=== PATIENT | female | born 1955 | race African-American/Black ===

== ENCOUNTER 2017-08-24 12:30 | Emergency (ER) | payer BC, OTHER ==
[2017-08-24 12:41] VITALS: BMI 22.3
[2017-08-24] MEDS ORDERED: KETOROLAC TROMETHAMINE 15 MG/ML VIAL IVPUSH ONE (14:09)
[2017-08-24] MEDS ORDERED: KETOROLAC TROMETHAMINE 60 MG/2 ML VIAL ONE (14:38)
[2017-08-24 15:32] LABS: ALBUMIN 3.9 g/dl (3.4-5.0); ANION GAP 8 (8-16); BILIRUBIN,TOTAL 0.3 mg/dL (0.2-1.0); CALCIUM 8.9 mg/dL (8.5-10.1); CO2 28 mmol/L (21-32); CREATININE 0.7 mg/dL (0.55-1.02); GLUCOSE,RANDOM 82 mg/dL (74-106); SGOT/AST 17 U/L (15-37); SGPT/ALT 26 U/L (12-78); TOT PROT 7.8 g/dl (6.4-8.2)
[2017-08-24 15:35] LABS: ALK PHOS 78 U/L (45-117); CPK 113 IU/L (26-192); TROPONIN I < 0.02 ng/ml (0.00-0.05)
[2017-08-24 15:37] LABS: BASOPHIL 0.6 % (0-2.0); EOSINOPHIL 3.7 % (0-4.5); MCH 27.8 pg (25.7-33.7); MCHC 32.5 g/dl (32.0-36.0); MEAN CELL VOLUME 85.6 fl (80-96); MEAN PLT VOLUME 9.2 fl (7.5-11.1); NEUTROPHILS 51.6 % (42.8-82.8); PLATELET COUNT 243 K/MM3 (134-434); RDW 13.9 % (11.6-15.6); WHITE BLOOD COUNT 5.6 K/mm3 (4.0-10.0)
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
[2017-08-24 15:55] LABS: PROTHROMBIN TIME (PATIENT) 11.3 SEC (9.98-11.88)
[2017-08-24 15:58] LABS: ACTIVATED PTT 28.6 SECONDS (26.9-34.4)
[2017-08-24 18:28] VITALS: BP 147/83; PULSE 68; TEMP 97.6
[2017-08-24 18:54] LABS: CPK 107 IU/L (26-192); TROPONIN I < 0.02 ng/ml (0.00-0.05)
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
--- NOTE | 2017-08-25 10:06 | EKG ---
Test Reason : Blood Pressure : / mmHG Vent. Rate : 067 BPM Atrial Rate : 067 BPM P-R Int : 158 ms QRS Dur : 090 ms QT Int : 448 ms P-R-T Axes : 093 003 011 degrees QTc Int : 473 ms POOR DATA QUALITY, INTERPRETATION MAY BE ADVERSELY AFFECTED NORMAL SINUS RHYTHM RSR' OR QR PATTERN IN V1 SUGGESTS RIGHT VENTRICULAR CONDUCTION DELAY Confirmed by JASBIR LAZAR MD ([id number]) on 08/25/2017 10:05:50 AM Referred By: Confirmed By:JASBIR LAZAR MD
== END 2017-08-24 20:08 | disposition home or self-care (01) ==
LOC: JER 12:30
PROC: 3E0333Z Introduction of Anti-inflammatory into Peripheral Vein, Percutaneous Approach (ICD-10-PCS; principal; 2017-08-24)
DX: R07.9 Chest pain, unspecified (principal); V49.69XA Unspecified car occupant injured in collision with other motor vehicles in traffic accident, initial encounter; Y92.488 Other paved roadways as the place of occurrence of the external cause; Y93.89 Activity, other specified; Y99.8 Other external cause status
CPT/HCPCS: 36415; 71020-TC; 80053; 82550; 84484; 85025; 85610; 85730; 93005; 93010; 99284-25

== ENCOUNTER → 2020-04-30 | Day surgery (SDC) | payer OTHER ==
--- NOTE | 2020-05-04 12:12 | PATH ---
Surgical Pathology Report Patient Name: MAGNOLIA MARTÍNEZ [facility]. Rec. #: [id number] /Age/Gender: 1955 (Age: 64) / F Account: [id number] Location: [facility] Taken: 04/30/2020 Received: 04/30/2020 Reported: 05/04/2020 Physicians: Candie Estevez M.D. Specimen(s) Received A: RIGHT BREAST SPECIMEN WITH CALCIFICATIONS SITE #1 B: RIGHT BREAST SPECIMEN WITHOUT CALCIFICATIONS SITE #1 C: RIGHT BREAST SPECIMEN WITH CALCIFICATIONS SITE #2 D: RIGHT BREAST SPECIMEN WITH CALCIFICATIONS SITE #2 Clinical History Nonpalpable lesion Mammographic findings: Microcalcification, suspicious Final Diagnosis A. BREAST, RIGHT, WITH CALCIFICATIONS, SITE #1, STEREOTACTIC BIOPSY: DUCTAL CARCINOMA IN SITU (DCIS), SOLID TYPE, HIGH NUCLEAR GRADE WITH EXTENSIVE NECROSIS AND ASSOCIATED CALCIFICATIONS. MICROINVASION CANNOT BE EXCLUDED IN THIS MATERIAL. (SEE NOTE) Note: A focus suspicious for microinvasion is noted on H&E slides. Immunohistochemical slides for myoepithelial markers (SMM-HC & p63, performed at [facility]) demonstrate the presence of myoepithelial cells in the foci of DCIS, however the focus suspicious for microinvasion cannot be further evaluated as it is no longer present in the sections for immunohistochemical stains. B. BREAST, RIGHT, WITHOUT CALCIFICATIONS SITE #1, STEREOTACTIC BIOPSY: BENIGN BREAST TISSUE. C. BREAST, RIGHT, WITH CALCIFICATIONS SITE #2, STEREOTACTIC BIOPSY: DUCTAL CARCINOMA IN SITU (DCIS), SOLID AND MICROPAPILLARY TYPE, HIGH NUCLEAR GRADE WITH EXTENSIVE NECROSIS AND ASSOCIATED CALCIFICATIONS. D. BREAST, RIGHT, WITHOUT CALCIFICATIONS SITE #2, STEREOTACTIC BIOPSY: DUCTAL CARCINOMA IN SITU (DCIS), SOLID AND MICROPAPILLARY TYPE, HIGH NUCLEAR GRADE. Results of ER and OH studies performed on this specimen (block A2) at [facility] are as follows: ER (clone [id number] mouse monoclonal antibody by [employer]): _X_ Positive: ~80 % nuclear staining with moderate to strong intensity. PgR (clone16 mouse monoclonal antibody by [employer]): _X_ Positive: ~40 % nuclear staining with moderate to strong intensity. Positive and negative controls (internal if applicable) show appropriate results. Formalin fixation and cold ischemic times are within current ASCO/CAP recommendations for ER, OH and Her2 testing. Electronically Signed Marika Villanueva M.D. Gross Description A. Received in formalin labeled "site 1 right breast with calcifications," are 9 doll-yellow, cylindrical portions of fibroadipose tissue ranging from 0.8-3.0 cm in length and averaging 0.2 cm in diameter. The specimens are submitted in 2 cassettes. B. Received in formalin labeled "site 1 right breast without calcifications," is a 0.8 cm in length x 0.2 cm diameter doll-yellow, cylindrical portion of fibroadipose tissue. The specimen is submitted in toto in one cassette. C. Received in formalin labeled "site 2 right breast with calcifications," is a 1.6 x 1.1 x 0.3 cm aggregate of doll-yellow, irregular to cylindrical portions of fibroadipose tissue. The specimen is submitted in toto in one cassette. D. Received in formalin labeled "site 2 right breast without calcifications," are 5 doll-yellow, cylindrical portions of fibroadipose tissue ranging from 0.6-2.5 cm in length and averaging 0.3 cm in diameter. The specimens are submitted in toto in one cassette. Time to formalin fixation: 5 minutes Total formalin fixation time: Approximately 7 hours. 04/30/2020 [facility]04/30/2020
== END | disposition home or self-care (01) ==
LOC: FMAMMOTONE 08:23
PROVIDERS: ATTEND Obstetrics & Gynecology
PROC: 0HBT3ZX Excision of Right Breast, Percutaneous Approach, Diagnostic (ICD-10-PCS; principal; 2020-04-30)
DX: D05.11 Intraductal carcinoma in situ of right breast (principal); N64.89 Other specified disorders of breast; R92.1 Mammographic calcification found on diagnostic imaging of breast
CPT/HCPCS: 19081; 19082; 76098-TC-FY; 87899; 88305-TC; 88341-TC; 88342-TC; A4648